=== PATIENT | male | born 1965 | race American Indian/Alaskan Native ===

== ENCOUNTER 2018-12-04 07:02 | Day surgery (SDC) | payer OTHER ==
[~2018-12-04 07:02] MED LIST: NACL 0.9% 1000 ML 1,000 ML IV SCH
--- NOTE | 2018-12-04 07:58 | Anesthesia Consultation ---
Anesthesia Consult and Med Hx Date of service: 12/04/18 - Airway Anesthetic Teeth Evaluation: Good ROM Head & Neck: Adequate Mental/Hyoid Distance: Adequate Mallampati Class: Class III Intubation Access Assessment: Possibly Difficult - Pre-Operative Health Status ASA Pre-Surgery Classification: ASA3 Proposed Anesthetic Plan: MAC - Pulmonary Hx Sleep Apnea: Yes (uses CPAP) - Cardiovascular System Hx Coronary Artery Disease: No (high cholesterol) - Gastrointestinal Hx Gastroesophageal Reflux Disease: Yes (hiatal hernia) - Endocrine Hx Insulin Dependent Diabetes: Yes (takes metformin and insulin) - Other Systems Hx Obesity: Yes (Morbid obesity BMI 39.3)
--- NOTE | 2018-12-04 07:59 | Anesthesia Day of Surgery ---
Anesthesia Day of Surgery - Day of Surgery Patient Examined: Yes Patient H&P Reviewed: Yes Patient is NPO: Yes
[2018-12-04] MEDS ORDERED: XYLOCAINE MPF 2% ONE (08:00)
[2018-12-04] MEDS ORDERED: DIPRIVAN 10 MG/ML IV ONE (08:08)
[2018-12-04] MEDS ORDERED: WATER FOR IRRIG STERILE IR ONE (09:01)
--- NOTE | 2018-12-04 09:02 | Procedure Note ---
Date of procedure: 12/04/18 Pre-op diagnosis: Hiatal Hernia/ GERD Post-op diagnosis: other (Hiatal Hernia (5 cm from 40 to 45 cm)/Mild to Moderate Erosive Esophagitis/Gastritis/No Peptic Ulcer Disease noted) Procedure: EGD with Biopsy Anesthesia: MAC Surgeon: TEZ HERNANDEZ Estimated blood loss: minimal Pathology: list Specimen disposition: to lab Condition: stable Disposition: same day (Treat with PPI; avoid aspirin and NSAID for 4 days, otherwise resume home medication. Follow up in 1 to 2 weeks ([phone]).)
--- NOTE | 2018-12-04 09:22 | Operative Report ---
PROCEDURE: Esophagogastroduodenoscopy with biopsy. INDICATIONS: A 53-year-old -[place] gentleman who has hiatal hernia for which he is to go for surgery. EGD was done to assess for the size of the hiatal hernia and for any other associated upper GI pathology. DESCRIPTION OF PROCEDURE: The procedure was done after getting informed consent with MAC anesthesia. Instrument was passed through the hypopharynx into the esophagus. The patient appears to have reactive airway problem and he had severe bout of coughing following the intubation, the scope was withdrawn and after additional sedation, the scope was then introduced again. The patient was noted to have a 5 cm hiatal hernia stretching from 45-40 cm. There was [id number] distal erosive esophagitis noted. Photodocumentation and biopsy was obtained. The stomach showed antral gastritis. No gastric ulcer was noted in the straight or the retroverted view. The pylorus is patent. The duodenum in the first and second portion appeared normal. Biopsy was done from the gastric antrum, gastric body and angular incisura to rule out for H. pylori and atrophic gastritis. There was minimal bleeding associated with the procedure. No complications associated with the procedure. ASSESSMENT: History of hiatal hernia, 5 cm hiatal hernia noted from 40-45 cm. [id number] erosive esophagitis, gastritis. The patient will be asked to avoid aspirin and aspirin-related products for the next few days. Follow up in the office in 1-2 weeks' time, treated with PPI in the interim, resume home medications except for aspirin and aspirin-related products, which will be held for 4 days or so and follow up in the office in 1-2 weeks' time. Procedure was done in the GI lab with assistance of the GI lab team, which included RN, Yong Simmons and with assistance of anesthesia. The patient is supposed to proceed with surgery to correct his hiatal hernia. JOB# [id number] NANCIE/ANGELA
[2018-12-04 09:33] VITALS: BP 144/77
--- NOTE | 2018-12-04 19:08 | Post Anesthesia Evaluation ---
- Post Anesthesia Evaluation Patient Participated: Yes Airway Patent: Yes Stable Respiratory Function: Yes Nausea/Vomiting: No Temp > 96.8F: Yes Pain Manageable: Yes Adequeate Hydration: Yes Anesthesia Complications: No Block Receding Appropriately: Not Applicable Patient on Ventilator: No
== END 2018-12-04 07:03 | disposition home or self-care (01) ==
LOC: GIO 07:02
DX: K44.9 Diaphragmatic hernia without obstruction or gangrene (principal); K21.0 Gastro-esophageal reflux disease with esophagitis; K29.50 Unspecified chronic gastritis without bleeding; I10 Essential (primary) hypertension; E11.9 Type 2 diabetes mellitus without complications; E66.01 Morbid (severe) obesity due to excess calories; Z79.899 Other long term (current) drug therapy; Z79.4 Long term (current) use of insulin; Z98.890 Other specified postprocedural states; Z68.39 Body mass index [BMI] 39.0-39.9, adult
CPT/HCPCS: 43239; 82962; 88305; 88342; J2704; J7030